=== PATIENT | female | born 1945 | race Two or more races ===

== ENCOUNTER 2020-11-04 11:00 | Inpatient (IN) | payer OTHER ==
[~2020-11-04] VITALS: Ht 162.6 cm; Wt 73.9 kg
[~2020-11-04 11:00] MED LIST: ASA81 MG PO; AVAPRO150 MG PO; CIPROFLOXACIN750 MG PO; CLONAZEPAM1 MG PO; CYMBALTA20 MG PO; DOCUSATE SODIU100 MG PO; EVISTA60 MG PO; GABAPENTIN800 MG PO; METHYLPRED4 MG/DOSE- PO; PERCOCET 5/3251 TAB PO; SYNTHROID75 MCG PO; [UNRECOGNIZED DRUG - OTHER] PO
[2020-11-10] MEDS ORDERED: OMEGA-3 ACID ETH1 GM (10:55)
[2020-11-10] MEDS ORDERED: SYNTHROID50 MCG (10:55)
[2020-11-10] MEDS ORDERED: MELOXICAM15 MG (10:55)
[2020-11-10] MEDS ORDERED: VITAMIN D31250 MCG (10:55)
[2020-11-10] MEDS ORDERED: FENOFIBRATE160 MG (10:55)
[2020-11-10] MEDS ORDERED: BACLOFEN10 MG (10:56)
[2020-11-10] MEDS ORDERED: ESOMEPRAZOLE MA40 MG (10:56)
[2020-11-10] MEDS ORDERED: PREGABALIN75 MG (10:56)
[2020-11-10] MEDS ORDERED: KETOROLAC60 MG/2 M1 (10:56)
[2020-11-10] MEDS ORDERED: FEXOFENADINE H180 MG (10:57)
[2020-11-10] MEDS ORDERED: DEXAMETHAS0.5 MG/5 M (10:57)
[2020-11-10] MEDS ORDERED: LEVOCETIRIZINE D5 MG (10:57)
[2020-11-10] MEDS ORDERED: BYSTOLIC2.5 MG (10:57)
[2020-11-10] MEDS ORDERED: DICLOFENAC POTA50 MG (10:57)
[2020-11-10] MEDS ORDERED: COLACE100 MG PO (11:11)
[2020-11-10] MEDS ORDERED: MEDROLPACK PO (11:11)
[2020-11-10] MEDS ORDERED: NEURONTIN800 MG PO (11:11)
[2020-11-10] MEDS ORDERED: DIAZEPAM5 MG PO (11:11)
[2020-11-10] MEDS ORDERED: BACTRIM DS TAB1 EACH PO (11:11)
[2020-11-10] MEDS ORDERED: PERCOCET 5-3251 EACH PO (11:11)
== END 2020-11-12 09:37 | disposition home or self-care (01) | DRG 455 ==
LOC: O/R 11-10 07:27 → SURH 11-10 12:30 → PED 11-10 16:39 → SURH 11-10 22:00 → PED 11-12 09:37
PROVIDERS: ADMIT Orthopaedic Surgery Orthopaedic Surgery of the Spine; ATTEND Orthopaedic Surgery Orthopaedic Surgery of the Spine
PROC: 0SG00A0 Fusion of Lumbar Vertebral Joint with Interbody Fusion Device, Anterior Approach, Anterior Column, Open Approach (ICD-10-PCS; 2020-11-10)
PROC: 07DR0ZZ Extraction of Iliac Bone Marrow, Open Approach (ICD-10-PCS; 2020-11-10)
PROC: 0SG00J1 Fusion of Lumbar Vertebral Joint with Synthetic Substitute, Posterior Approach, Posterior Column, Open Approach (ICD-10-PCS; principal; 2020-11-10 22:00)
DX: M46.1 Sacroiliitis, not elsewhere classified (principal); M54.16 Radiculopathy, lumbar region; M51.36 Other intervertebral disc degeneration, lumbar region